=== PATIENT | female | born 1960 | race Caucasian/White ===

== ENCOUNTER → 2016-10-22 | Outpatient (CLI) | payer BC ==
[~2016-10-22] MED LIST: B-CO1TAB29 PO; CHOL100027 PO; DOCO200C2 PO; IBUP-1277 PO; LORA10CA2 PO; OMEGCAP2 PO; THYR15TA PO; VITA400C3 PO
--- NOTE | 2016-10-22 14:54 | DIAGNOSTIC IMAGING REPORT ---
LEFT SHOULDER 3 VIEWS HISTORY: LEFT SHOULDER PAIN COMPARISON: None. FINDINGS: There is no fracture or dislocation. Soft tissues are unremarkable. The left clavicle is intact. Cartilage spaces are maintained for age. IMPRESSION: No fracture or dislocation within the left shoulder. Electronically signed by: Oscar Jarvis M.D. 10/22/2016 2:51 PM Dictated Date/Time: 10/22/2016 2:49 PM
== END | disposition home or self-care (01) ==
LOC: C.RDSM 14:35
PROVIDERS: ATTEND Family Medicine
DX: M25.512 Pain in left shoulder (principal)

== ENCOUNTER → 2016-11-09 | Outpatient (CLI) | payer BC ==
--- NOTE | 2016-11-09 10:20 | DIAGNOSTIC IMAGING REPORT ---
CHEST 2 VIEWS ROUTINE HISTORY: J45.909 Asthmatic [id number] COMPARISON: Chest 04/13/2013. FINDINGS: No pleural effusions. No pneumothorax. No focal lung consolidations to suggest pneumonia. The heart is normal in size. Mild central peribronchial cuffing remains unchanged. IMPRESSION: No significant change compared to the prior study. Mild central peribronchial cuffing can be seen in the setting of reactive airways disease. No new focal lung consolidations to suggest pneumonia. Electronically signed by: Oscar Jarvis M.D. 11/09/2016 10:18 AM Dictated Date/Time: 11/09/2016 10:14 AM
== END | disposition home or self-care (01) ==
LOC: C.RAD1850 10:02
PROVIDERS: ATTEND Physician Assistant
DX: J45.909 Unspecified asthma, uncomplicated (principal); R05 Cough

== ENCOUNTER → 2017-05-19 | Outpatient (CLI) | payer BC ==
--- NOTE | 2017-05-19 13:16 | DIAGNOSTIC IMAGING REPORT ---
CHEST 2 VIEWS ROUTINE CLINICAL HISTORY: 56 years-old Female presenting with J45.909 Asthmatic [id number]. TECHNIQUE: PA and lateral views of the chest were obtained. COMPARISON: 11/09/2016. FINDINGS: Cardiomediastinal silhouette normal. Lungs and pleural spaces clear. Osseous structures normal. Upper abdomen normal. IMPRESSION: 1. No acute cardiopulmonary disease. Electronically signed by: Avery Myers M.D. 05/19/2017 1:14 PM Dictated Date/Time: 05/19/2017 11:55 AM
== END | disposition home or self-care (01) ==
LOC: C.RAD1850 11:45
PROVIDERS: ATTEND Physician Assistant
DX: J45.909 Unspecified asthma, uncomplicated (principal)

== ENCOUNTER → 2017-07-01 | Outpatient (CLI) | payer BC ==
--- NOTE | 2017-07-01 11:20 | DIAGNOSTIC IMAGING REPORT ---
CT LUNG SCREENING, LOW DOSE WITH COMPUTER-AIDED DETECTION (CAD) CLINICAL HISTORY: Smoking history. Lung cancer screening. COMPARISON STUDY: Chest CT dated 05/18/2016. CT DOSE: 85.91 mGy.cm TECHNIQUE: Low-dose helical CT was acquired without intravenous contrast from lung apices to bases and reconstructed at 2.5 mm every 2 mm. CAD was utilized for this study. A dose lowering technique was utilized adhering to the principles of ALARA. FINDINGS: Thyroid: Imaged portions of the thyroid gland are normal in appearance. Thoracic aorta: The thoracic aorta is normal in course and caliber, noting standard 3 vessel arch anatomy. Heart: The heart is top normal in size and there is trace pericardial fluid. Lungs and pleural spaces: There is mild emphysematous change. The trachea and central airways are clear. A small fat-containing Bochdalek hernia is seen at the left lung base. There is a 4 mm focus of pleural-based nodularity in the right middle lobe seen on image #167. Tiny foci of pleural-based nodularity are seen in the right middle lobe along the right minor fissure on image #116 and in the left upper lobe along the major fissure on image #92. These are unchanged and of doubtful significance. Mediastinum: There is no mediastinal lymphadenopathy. Alejandra: Not well assessed without IV contrast. Axilla: Shotty axillary lymph nodes are similar to previous. Upper abdomen: There is a tiny hiatal hernia. Partially visualized upper abdominal viscera is otherwise within normal limits. Skeletal structures: The skeletal structures are osteopenic. Mild degenerative change is seen throughout the thoracic spine. There are no lytic or blastic osseous lesions. IMPRESSION: 1. Mild emphysema. 2. No airspace consolidation or pleural effusion is identified. 3. Low suspicion foci of pleural-based nodularity are unchanged from 05/18/2016 as above. No concerning pulmonary lesion is identified. CAD FINDINGS: Nodule 1 Category: 2 Nodule 1 Status: Stable Nodule 1 Description: Solid Nodule 1 Lesion ID: 1 Nodule 1 Slice Number: 68 Nodule 1 Volume (mm3): 52 Nodule 1 Major [place] mm: 6.2 Nodule 1 Minor [place] mm: 3.8 Overall Lung RADS Category: 2 Lung RADS Management Recommendation: Continue annual lung cancer screening. Lung RADS Follow Up Date: 2018-07-01 Lung RADS Nodule ID: 1 Electronically signed by: Uziel Aguilar M.D. 07/01/2017 11:19 AM Dictated Date/Time: 07/01/2017 11:11 AM
== END | disposition home or self-care (01) ==
LOC: C.CTS 10:54
PROVIDERS: ATTEND Internal Medicine
DX: Z12.2 Encounter for screening for malignant neoplasm of respiratory organs (principal); J43.9 Emphysema, unspecified; Z87.891 Personal history of nicotine dependence